=== PATIENT | female | born 1985 | race Caucasian/White ===

== ENCOUNTER 2019-05-22 00:53 | Emergency (ER) | payer SELFPAY ==
[2019-05-22] MEDS ORDERED: Fluorescein Opthalmic Strip ONE (01:15)
[2019-05-22] MEDS ORDERED: Proparacaine 0.5% Opth 15 ML BOT ONE (01:15)
[2019-05-22] MEDS ORDERED: cloNIDine 0.1 MG TAB ONE (01:21)
== END 2019-05-22 02:10 | disposition home or self-care (01) ==
LOC: ERS 00:53
DX: H10.9 Unspecified conjunctivitis (principal); I10 Essential (primary) hypertension; F41.9 Anxiety disorder, unspecified; F32.9 Major depressive disorder, single episode, unspecified; F17.210 Nicotine dependence, cigarettes, uncomplicated
CPT/HCPCS: 99283

== ENCOUNTER 2019-07-18 01:10 | Emergency (ER) | payer SELFPAY ==
[2019-07-18] MEDS ORDERED: diphenhydrAMINE 50 MG/ML VIAL ONE (01:23)
== END 2019-07-18 02:35 | disposition home or self-care (01) ==
LOC: ERS 01:10
DX: G24.09 Other drug induced dystonia (principal); T43.595A Adverse effect of other antipsychotics and neuroleptics, initial encounter; F12.90 Cannabis use, unspecified, uncomplicated; I10 Essential (primary) hypertension; F41.9 Anxiety disorder, unspecified; F17.210 Nicotine dependence, cigarettes, uncomplicated
CPT/HCPCS: 96374; J1200

== ENCOUNTER 2022-02-13 21:02 | Inpatient (IN) | payer BC, SELFPAY ==
[2022-02-13 21:45] LABS: #Lymphocytes 0.9 thou/uL (1.20-3.40); #Monocytes 0.7 thou/uL (0.11-0.59); #Neutrophils 9.5 thou/uL (1.40-6.50); %Basophils 0.1 % (0.0-1.0); %Eosinophils 0.1 % (0.0-10.0); %Lymphocytes 8.3 % (21.0-51.0); %Monocytes 6.5 % (0.0-10.0); %Neutrophils 84.9 % (42.0-75.0); Hemoglobin 8.3 g/dL (12.0-16.0); Mean Corpuscular HGB CONC 31.1 g/dL (32.0-36.0); Mean Corpuscular Hemoglobin 26.5 pg (27.0-31.0); Mean Corpuscular Volume 85.3 fl (78.0-98.0); Mean Platelet Volume 7.9 fL (7.4-10.4); Platelet Count 421 10x3/uL (130-400); RBC Distribution Width 18.4 % (11.5-14.5); Red Blood Cell (RBC) Count 3.14 mill/uL (4.20-5.40); White Blood Cell (WBC) Count 11.2 10x3/uL (4.8-10.8)
[2022-02-13 22:08] LABS: ALT (SGPT) 77 U/L (8-55); AST (SGOT) 43 U/L (5-34); Albumin 3.7 g/dL (3.5-5.0); Alkaline Phosphatase 102 U/L (40-110); Anion Gap 15 mmol/L (10-20); BUN (Urea Nitrogen) 46 mg/dL (7.0-18.7); Bilirubin, Total 0.7 mg/dL (0.2-1.2); Calc. Creatinine Clearance 0 mL/min (70-130); Calcium 8.5 mg/dL (7.8-10.44); Carbon Dioxide 18 mmol/L (22-29); Chloride 110 mmol/L (98-107); Estimated GFR 18; Globulin 2.7 g/dL (2.4-3.5); Glucose 115 mg/dL (70-105); Lipase 69 U/L (8-78); Potassium 3.5 mmol/L (3.5-5.1); Protein, Total 6.4 g/dL (6.0-8.3); Sodium 139 mmol/L (136-145)
[2022-02-13] MEDS ORDERED: Nitroglycerin 2% Ointment 1 INCH/1 GM Packet ONE (23:01)
[2022-02-13] MEDS ORDERED: Furosemide 40 MG/4 ML VIAL ONE (23:18)
[2022-02-13 23:36] LABS: CKMB 3.2 ng/mL (0-6.6)
[2022-02-14] MEDS ORDERED: Nitroglycerin 50 MG/250 ML BOT 0 ML ONE (00:37)
[2022-02-14] MEDS ORDERED: niCARdipine 25 MG/10 ML VIAL ONE (00:48)
[2022-02-14 01:58] LABS: Bilirubin Negative (Negative); Blood, Urine Negative (Negative); Clarity Clear (Clear); Glucose, Urine (Dipstick) Normal (Negative); Ketone, Urine Negative (Negative); Leukocyte Negative Leu/uL (Negative); Nitrite Negative (Negative); Protein, Urine (Dipstick) 20 mg/dL (Neg-Trace); Specific Gravity, Urine 1.006 (1.002-1.036); Urobilinogen Normal mg/dL (Less than 2); pH, Urine 6.5 (5.0-9.0)
[2022-02-14 02:32] LABS: Troponin I 0.048 ng/mL (< 0.028)
[2022-02-14] MEDS ORDERED: Ondansetron ODT 4 MG TAB SL PRN (03:00)
[2022-02-14] MEDS ORDERED: Ondansetron PF 4 MG/2 ML Vial IVP PRN (03:00)
[2022-02-14] MEDS: niCARdipine 25 MG in Sodium Chloride 0.9% 250 ML 250 ML IVPB SCH ×2 (03:24→08:32)
[2022-02-14 04:36] LABS: Amphetamine Not Detected (NotDetected); Barbiturates Screen Not Detected (NotDetected); Benzodiazepine Screen Not Detected (NotDetected); Cocaine Metabolite Screen Not Detected (NotDetected); Methadone Not Detected (NotDetected); Methamphetamine Detected (NotDetected); Opiate Screen Not Detected (NotDetected); Oxycodone Screen Not Detected (NotDetected); Phencyclidine (PCP) Not Detected (NotDetected); THC/Cannabinoid Screen Not Detected (NotDetected); Tricyclic Screen Not Detected (NotDetected)
[2022-02-14 05:15] LABS: Troponin I 0.061 ng/mL (< 0.028)
[2022-02-14] MEDS: Furosemide 40 MG/4 ML VIAL SLOW IVP SCH ×2 (06:22→13:21)
[2022-02-14] MEDS: Acetaminophen 325 MG TAB PO PRN ×2 (06:23→13:37)
[2022-02-14 06:29] LABS: #Basophils 0.1 thou/uL (0.0-0.2); #Lymphocytes 0.9 thou/uL (1.20-3.40); #Monocytes 0.6 thou/uL (0.11-0.59); #Neutrophils 8.6 thou/uL (1.40-6.50); %Basophils 0.8 % (0.0-1.0); %Eosinophils 0.3 % (0.0-10.0); %Lymphocytes 8.8 % (21.0-51.0); %Monocytes 6.1 % (0.0-10.0); Hemoglobin 8.1 g/dL (12.0-16.0); Mean Corpuscular HGB CONC 30.4 g/dL (32.0-36.0); Mean Corpuscular Hemoglobin 25.4 pg (27.0-31.0); Mean Corpuscular Volume 83.7 fl (78.0-98.0); Mean Platelet Volume 7.8 fL (7.4-10.4); Platelet Count 413 10x3/uL (130-400); RBC Distribution Width 18.4 % (11.5-14.5); Red Blood Cell (RBC) Count 3.19 mill/uL (4.20-5.40); White Blood Cell (WBC) Count 10.2 10x3/uL (4.8-10.8)
[2022-02-14 06:43] LABS: Iron Binding Capacity, Total 428 mcg/dL (265-497); Magnesium 2.1 mg/dL (1.6-2.6)
[2022-02-14 06:44] LABS: Iron 25 ug/dL (50-170)
[2022-02-14 06:45] LABS: ALT (SGPT) 79 U/L (8-55); AST (SGOT) 41 U/L (5-34); Albumin 3.8 g/dL (3.5-5.0); Alkaline Phosphatase 105 U/L (40-110); Anion Gap 16 mmol/L (10-20); BUN (Urea Nitrogen) 43 mg/dL (7.0-18.7); Bilirubin, Total 0.8 mg/dL (0.2-1.2); Calc. Creatinine Clearance 46 mL/min (70-130); Calcium 8.4 mg/dL (7.8-10.44); Carbon Dioxide 19 mmol/L (22-29); Chloride 106 mmol/L (98-107); Estimated GFR 21; Globulin 2.8 g/dL (2.4-3.5); Glucose 110 mg/dL (70-105); Iron 26 ug/dL (50-170); Iron Binding Capacity, Total 444 mcg/dL (265-497); Protein, Total 6.6 g/dL (6.0-8.3); Sodium 138 mmol/L (136-145)
[2022-02-14] MEDS: hydrALAZINE 25 MG TAB PO SCH ×3 (08:20→19:42)
[2022-02-14] MEDS: Carvedilol 6.25 MG TAB PO SCH ×2 (08:20→16:04)
[2022-02-14] MEDS: Famotidine 20 MG TAB PO SCH (08:21)
[2022-02-14] MEDS ORDERED: Electrolyte Replacement Protocol 1 EACH FS SCH (08:45)
[2022-02-14] MEDS ORDERED: Furosemide 40 MG/4 ML VIAL SLOW IVP SCH (09:00)
[2022-02-14 09:22] LABS: Pregnancy Test - Urine (BHCG) Negative (Negative); Pregu Control Background? CLEAR/WHITE (CLR/WHITE); Pregu Control Bar Appear? YES (CONTROL BAR); Specific Gravity 1.007 (1.002-1.036)
[2022-02-14] MEDS: Potassium Chloride 20 MEQ TAB PO SCH ×2 (09:28→10:19)
[2022-02-14] MEDS: Enoxaparin Sodium 40 MG/0.4 ML SYRINGE SC SCH ×2 (09:28→19:42)
[2022-02-14] MEDS ORDERED: Potassium Bicarbonate/Cit Ac 20 MEQ TAB PO SCH (09:45)
[2022-02-14] MEDS ORDERED: Amlodipine 5 MG TAB PO SCH (12:45)
[2022-02-14 14:23] LABS: Potassium 3.4 mmol/L (3.5-5.1)
[2022-02-14] MEDS ORDERED: hydrALAZINE 20 MG/ML VIAL SLOW IVP PRN (16:06)
[2022-02-14] MEDS ORDERED: Electrolyte Replacement Protocol FS SCH (17:45)
[2022-02-14] MEDS ORDERED: Potassium Chloride 20 MEQ TAB PO SCH (18:00)
[2022-02-14 18:49] LABS: Free T4 (Free Thyroxine) 1.1 ng/dL (0.70-1.48); HIV (1/2) Antibody/Antigen Non-Reactive (NonReactive); HIV 1/2 INDEX 0.16 S/CO (<1.00); Hep C IgG Ab Non-Reactive (NonReactive); Hep C Index 0.03 S/CO (0-0.79); Thyroid Stimulating Hormone 1.7633 uIU/mL (0.35-4.94)
[2022-02-14] MEDS: Amlodipine 5 MG TAB PO SCH (19:44)
[2022-02-15 04:06] LABS: #Eosinphils 0.1 thou/uL (0.0-0.7); #Lymphocytes 0.9 thou/uL (1.20-3.40); #Monocytes 0.4 thou/uL (0.11-0.59); %Basophils 0.3 % (0.0-1.0); %Eosinophils 0.9 % (0.0-10.0); %Lymphocytes 11.8 % (21.0-51.0); %Monocytes 5.9 % (0.0-10.0); %Neutrophils 81.2 % (42.0-75.0); Hemoglobin 8.1 g/dL (12.0-16.0); Mean Corpuscular HGB CONC 30.6 g/dL (32.0-36.0); Mean Corpuscular Hemoglobin 25.8 pg (27.0-31.0); Mean Corpuscular Volume 84.3 fl (78.0-98.0); Mean Platelet Volume 7.9 fL (7.4-10.4); Platelet Count 384 10x3/uL (130-400); RBC Distribution Width 17.9 % (11.5-14.5); Red Blood Cell (RBC) Count 3.14 mill/uL (4.20-5.40); White Blood Cell (WBC) Count 7.4 10x3/uL (4.8-10.8)
[2022-02-15 04:14] LABS: ALT (SGPT) 72 U/L (8-55); AST (SGOT) 33 U/L (5-34); Albumin 3.5 g/dL (3.5-5.0); Alkaline Phosphatase 97 U/L (40-110); Anion Gap 11 mmol/L (10-20); BUN (Urea Nitrogen) 39 mg/dL (7.0-18.7); Bilirubin, Total 0.5 mg/dL (0.2-1.2); Calc. Creatinine Clearance 48 mL/min (70-130); Carbon Dioxide 25 mmol/L (22-29); Chloride 105 mmol/L (98-107); Estimated GFR 22; Globulin 2.5 g/dL (2.4-3.5); Glucose 115 mg/dL (70-105); Magnesium 1.9 mg/dL (1.6-2.6); Potassium 3.4 mmol/L (3.5-5.1); Sodium 138 mmol/L (136-145)
[2022-02-15] MEDS: Acetaminophen 325 MG TAB PO PRN ×2 (04:31→13:01)
[2022-02-15] MEDS: Furosemide 40 MG/4 ML VIAL SLOW IVP SCH ×2 (05:55→13:02)
[2022-02-15 08:39] LABS: Phosphorus 4.6 mg/dL (2.3-4.7)
[2022-02-15] MEDS ORDERED: Enoxaparin Sodium 40 MG/0.4 ML SYRINGE SC SCH (09:00)
[2022-02-15] MEDS ORDERED: Amlodipine 5 MG TAB PO SCH (09:00)
[2022-02-15] MEDS: Carvedilol 6.25 MG TAB PO SCH ×2 (09:32→16:03)
[2022-02-15] MEDS: Famotidine 20 MG TAB PO SCH (09:33)
[2022-02-15] MEDS: Amlodipine 5 MG TAB PO SCH ×2 (09:33→21:48)
[2022-02-15] MEDS: Ferrous Sulfate 325 MG TAB PO SCH (09:33)
[2022-02-15] MEDS: Folic Acid/Vit B Comp W-C PO SCH (09:33)
[2022-02-15] MEDS: Heparin 5,000 UNITS/ML VIAL SC SCH ×3 (09:33→21:48)
[2022-02-15] MEDS: hydrALAZINE 25 MG TAB PO SCH ×3 (09:33→21:47)
[2022-02-15] MEDS: Lidocaine 5% Patch TD SCH (16:03)
[2022-02-15] MEDS: Acetaminophen 500 MG TAB PO PRN (18:53)
[2022-02-15] MEDS: Transdermal Patch Removal TOP SCH (23:48)
[2022-02-16] MEDS: Furosemide 40 MG/4 ML VIAL SLOW IVP SCH (05:05)
[2022-02-16 06:25] LABS: #Eosinphils 0.1 thou/uL (0.0-0.7); #Lymphocytes 0.9 thou/uL (1.20-3.40); #Monocytes 0.4 thou/uL (0.11-0.59); #Neutrophils 6.2 thou/uL (1.40-6.50); %Basophils 0.3 % (0.0-1.0); %Eosinophils 1.3 % (0.0-10.0); %Lymphocytes 11.3 % (21.0-51.0); %Monocytes 5.8 % (0.0-10.0); %Neutrophils 81.3 % (42.0-75.0); Hemoglobin 9.5 g/dL (12.0-16.0); Mean Corpuscular HGB CONC 30.4 g/dL (32.0-36.0); Mean Corpuscular Hemoglobin 25.9 pg (27.0-31.0); Mean Corpuscular Volume 85.4 fl (78.0-98.0); Mean Platelet Volume 7.6 fL (7.4-10.4); Platelet Count 417 10x3/uL (130-400); RBC Distribution Width 17.7 % (11.5-14.5); Red Blood Cell (RBC) Count 3.68 mill/uL (4.20-5.40); White Blood Cell (WBC) Count 7.6 10x3/uL (4.8-10.8)
[2022-02-16] MEDS: Labetalol HCl 100 MG/20 ML VIAL SLOW IVP PRN (06:27)
[2022-02-16 06:47] LABS: ALT (SGPT) 56 U/L (8-55); AST (SGOT) 17 U/L (5-34); Albumin 3.8 g/dL (3.5-5.0); Alkaline Phosphatase 113 U/L (40-110); Anion Gap 14 mmol/L (10-20); BUN (Urea Nitrogen) 37 mg/dL (7.0-18.7); Bilirubin, Total 0.5 mg/dL (0.2-1.2); Calc. Creatinine Clearance 49 mL/min (70-130); Calcium 8.6 mg/dL (7.8-10.44); Carbon Dioxide 26 mmol/L (22-29); Chloride 103 mmol/L (98-107); Estimated GFR 23; Globulin 3.1 g/dL (2.4-3.5); Glucose 125 mg/dL (70-105); Potassium 3.3 mmol/L (3.5-5.1); Protein, Total 6.9 g/dL (6.0-8.3); Sodium 140 mmol/L (136-145)
[2022-02-16 07:29] VITALS: BMI 44.6
[2022-02-16] MEDS ORDERED: hydrALAZINE 25 MG TAB PO SCH ×2 (07:30→12:00)
[2022-02-16] MEDS ORDERED: NIFEdipine XL 60 MG TAB PO SCH ×2 (07:45→21:00)
[2022-02-16 08:15] LABS: Hep B Surface AG-Rflx Sendout Negative (Negative); Hepatitis B Core Total Negative (Negative); Hepatitis B Surface AB-Sendout Non Reactive (.)
[2022-02-16] MEDS: Carvedilol 6.25 MG TAB PO SCH (09:02)
[2022-02-16] MEDS: Ferrous Sulfate 325 MG TAB PO SCH (09:03)
[2022-02-16] MEDS: Famotidine 20 MG TAB PO SCH (09:03)
[2022-02-16] MEDS: Folic Acid/Vit B Comp W-C PO SCH (09:04)
[2022-02-16] MEDS: Heparin 5,000 UNITS/ML VIAL SC SCH ×3 (09:04→20:24)
[2022-02-16] MEDS ORDERED: Potassium Chloride 20 MEQ TAB PO SCH (10:45)
[2022-02-16] MEDS ORDERED: Ergocalciferol 1.25 MG(50,000 UNITS) CAP PO SCH (11:00)
[2022-02-16] MEDS ORDERED: NOREPINEPHRINE 8 MG/250 ML-D5W 250 ML ONE (12:18)
[2022-02-16] MEDS ORDERED: NOREPINEPHRINE 8 MG/250 ML-D5W 250 ML IVPB SCH (12:30)
[2022-02-16] MEDS ORDERED: Ondansetron PF 4 MG/2 ML Vial IVP PRN (16:05)
[2022-02-16] MEDS ORDERED: Phentolamine Mesylate 5 MG VIAL SC SCH (16:15)
[2022-02-16] MEDS: Lidocaine 5% Patch TD SCH (16:15)
[2022-02-16] MEDS ORDERED: Labetalol HCl 100 MG TAB PO PRN (17:08)
[2022-02-16] MEDS: Acetaminophen 500 MG TAB PO PRN (20:23)
[2022-02-17 04:21] LABS: #Basophils 0.1 thou/uL (0.0-0.2); #Eosinphils 0.1 thou/uL (0.0-0.7); #Lymphocytes 1.2 thou/uL (1.20-3.40); #Monocytes 0.8 thou/uL (0.11-0.59); #Neutrophils 8.9 thou/uL (1.40-6.50); %Basophils 0.5 % (0.0-1.0); %Eosinophils 1.1 % (0.0-10.0); %Lymphocytes 10.5 % (21.0-51.0); %Monocytes 6.9 % (0.0-10.0); Mean Corpuscular HGB CONC 30.5 g/dL (32.0-36.0); Mean Corpuscular Hemoglobin 25.4 pg (27.0-31.0); Mean Corpuscular Volume 83.2 fl (78.0-98.0); Mean Platelet Volume 7.7 fL (7.4-10.4); Platelet Count 382 10x3/uL (130-400); RBC Distribution Width 17.8 % (11.5-14.5); Red Blood Cell (RBC) Count 3.14 mill/uL (4.20-5.40)
[2022-02-17] MEDS: Transdermal Patch Removal TOP SCH ×2 (04:45→20:09)
[2022-02-17 04:47] LABS: ALT (SGPT) 43 U/L (8-55); AST (SGOT) 15 U/L (5-34); Albumin 3.6 g/dL (3.5-5.0); Alkaline Phosphatase 89 U/L (40-110); Anion Gap 14 mmol/L (10-20); BUN (Urea Nitrogen) 33 mg/dL (7.0-18.7); Bilirubin, Total 0.4 mg/dL (0.2-1.2); Calc. Creatinine Clearance 58 mL/min (70-130); Calcium 8.5 mg/dL (7.8-10.44); Carbon Dioxide 22 mmol/L (22-29); Chloride 106 mmol/L (98-107); Estimated GFR 29; Globulin 2.7 g/dL (2.4-3.5); Glucose 89 mg/dL (70-105); Magnesium 2.1 mg/dL (1.6-2.6); Potassium 4.1 mmol/L (3.5-5.1); Protein, Total 6.3 g/dL (6.0-8.3); Sodium 138 mmol/L (136-145)
[2022-02-17] MEDS: Labetalol HCl 100 MG/20 ML VIAL SLOW IVP PRN (05:29)
[2022-02-17] MEDS ORDERED: NIFEdipine XL 30 MG TAB PO SCH ×2 (07:45→21:00)
[2022-02-17] MEDS: Folic Acid/Vit B Comp W-C PO SCH (08:03)
[2022-02-17] MEDS: Famotidine 20 MG TAB PO SCH (08:03)
[2022-02-17] MEDS: NIFEdipine XL 30 MG TAB PO SCH ×2 (08:03→08:04)
[2022-02-17] MEDS: Ferrous Sulfate 325 MG TAB PO SCH (08:03)
[2022-02-17] MEDS: Heparin 5,000 UNITS/ML VIAL SC SCH ×3 (08:03→20:08)
[2022-02-17] MEDS ORDERED: FLU VACC QS2022-23(6MOS UP)/PF 60 MCG/0.5 ML SYRINGE IM ONE (09:00)
[2022-02-17] MEDS ORDERED: Labetalol HCl 100 MG TAB PO SCH ×3 (10:45→15:00)
[2022-02-17] MEDS ORDERED: hydrALAZINE 20 MG/ML VIAL SLOW IVP SCH (12:30)
[2022-02-17] MEDS: Labetalol HCl 100 MG TAB PO SCH ×2 (15:39→20:08)
[2022-02-17] MEDS: Lidocaine 5% Patch TD SCH (15:39)
[2022-02-17 21:17] VITALS: BP 162/104; TEMP 98.5
[2022-02-23] MEDS ORDERED: Ergocalciferol 1.25 MG(50,000 UNITS) CAP PO SCH (09:00)
== END 2022-02-17 20:30 | disposition left against medical advice (07) | DRG 917 ==
LOC: ERS 21:02 → CCU 02-14 01:08 → T4-A 02-15 03:54 → CCU 02-16 11:56 → IMCU/EMU 02-16 12:09 → T4-A 02-17 12:56
PROVIDERS: ADMIT Family Medicine; ATTEND Family Medicine
PROC: 3E033XZ Introduction of Vasopressor into Peripheral Vein, Percutaneous Approach (ICD-10-PCS; principal; 2022-02-16)
DX: T43.651A Poisoning by methamphetamines accidental (unintentional), initial encounter (principal); I50.33 Acute on chronic diastolic (congestive) heart failure; T88.6XXA Anaphylactic reaction due to adverse effect of correct drug or medicament properly administered, initial encounter; N17.9 Acute kidney failure, unspecified; I13.0 Hypertensive heart and chronic kidney disease with heart failure and stage 1 through stage 4 chronic kidney disease, or unspecified chronic kidney disease; N25.81 Secondary hyperparathyroidism of renal origin; Z68.41 Body mass index [BMI] 40.0-44.9, adult; Z28.21 Immunization not carried out because of patient refusal; T46.5X5A Adverse effect of other antihypertensive drugs, initial encounter; R77.8 Other specified abnormalities of plasma proteins; I08.1 Rheumatic disorders of both mitral and tricuspid valves; I27.20 Pulmonary hypertension, unspecified; I16.0 Hypertensive urgency; D50.9 Iron deficiency anemia, unspecified; E66.01 Morbid (severe) obesity due to excess calories; N27.1 Small kidney, bilateral; E55.9 Vitamin D deficiency, unspecified; E87.6 Hypokalemia; N18.30 Chronic kidney disease, stage 3 unspecified; Z86.73 Personal history of transient ischemic attack (TIA), and cerebral infarction without residual deficits; Z90.49 Acquired absence of other specified parts of digestive tract; Z98.51 Tubal ligation status; Z82.49 Family history of ischemic heart disease and other diseases of the circulatory system; Z87.891 Personal history of nicotine dependence; Z71.51 Drug abuse counseling and surveillance of drug abuser
CPT/HCPCS: 36415; 36416; 71045; 76770; 80053; 80306; 81003; 81025; 82306; 82533; 82553; 82728; 83540; 83550; 83690; 83735; 83880; 83970; 84100; 84439; 84443; 84481; 84484; 85025; 86704; 86706; 86803; 86850; 86900; 86901; 87340; 87389; 93005; 93010; 96374; 96375; J0360; J1610; J1644; J1650; J1940; J2405; J2760; J7050